=== PATIENT | female | born 1985 | race Two or more races ===

== ENCOUNTER 2025-06-14 21:37 | Emergency (ER) | payer OTHER ==
[~2025-06-14] VITALS: Ht 177.8 cm; Wt 111.1 kg
[2025-06-14 22:04] VITALS: BP 176/93; TEMP 98.8; O2SAT 98
[2025-06-14] MEDS ORDERED: ACET-3102 PO (22:28)
[2025-06-14] MEDS ORDERED: IBUP-2314 PO (22:28)
[2025-06-14] MEDS: ACETAMINOPHEN ES 500 MG TABLET PO ONE (22:40)
[2025-06-14] MEDS: NAPROXEN 250 MG TABLET PO ONE (22:43)
== END 2025-06-14 22:43 | disposition home or self-care (01) ==
LOC: ER 21:40
DX: S43.101A Unspecified dislocation of right acromioclavicular joint, initial encounter (principal); E06.3 Autoimmune thyroiditis; Z60.2 Problems related to living alone; Z79.1 Long term (current) use of non-steroidal anti-inflammatories (NSAID); W18.30XA Fall on same level, unspecified, initial encounter; Y93.89 Activity, other specified; Y92.89 Other specified places as the place of occurrence of the external cause; Y99.9 Unspecified external cause status
CPT/HCPCS: 73030-TC